=== PATIENT | male | born 2005 | race Two or more races ===

== ENCOUNTER 2024-03-02 03:22 | Emergency (ER) | payer OTHER ==
[~2024-03-02] VITALS: Ht 177.8 cm; Wt 61.2 kg
[~2024-03-02 03:22] MED LIST: ZITHROMAX500 MG PO
[2024-03-02] MEDS ORDERED: BACITRACIN-NEOMYCIN-POLYMYXIN 0.9 GM PACKET TOP ONE (04:00)
== END 2024-03-02 04:09 | disposition home or self-care (01) ==
LOC: ER 03:23 → EMR PED 03:23
DX: S31.21XA Laceration without foreign body of penis, initial encounter (principal)